=== PATIENT | male | born 1990 | race African-American/Black ===

== ENCOUNTER 2019-01-16 01:59 | Emergency (ER) | payer OTHER ==
[~2019-01-16] VITALS: Ht 185.4 cm; Wt 99.3 kg
[2019-01-16 02:05] VITALS: BP_SYST 147
[2019-01-16] MEDS ORDERED: ACETAMINOPHEN 500 MG TABLET PO ONE (02:45)
[2019-01-16 05:09] VITALS: BP_SYST 147
== END 2019-01-16 05:09 | disposition home or self-care (01) ==
LOC: SED 01:59
DX: R51 Headache (principal); M54.6 Pain in thoracic spine; V43.92XA Unspecified car occupant injured in collision with other type car in traffic accident, initial encounter; Y93.89 Activity, other specified; Y92.410 Unspecified street and highway as the place of occurrence of the external cause; Y99.8 Other external cause status
CPT/HCPCS: 72072-TC; 72100-TC; 72128; 73564; 99284

== ENCOUNTER 2019-09-15 12:05 | Emergency (ER) | payer OTHER ==
[~2019-09-15] VITALS: Ht 185.4 cm; Wt 99.8 kg
[2019-09-15 12:50] VITALS: BP_SYST 155
[2019-09-15] MEDS ORDERED: AZITHROMYCIN 250 MG TABLET PO ONE (13:45)
[2019-09-15] MEDS ORDERED: cefTRIAXone 1 GM VIAL IM ONE (13:45)
--- NOTE | 2019-09-15 15:15 | NUR ---
Patient to ER bed 07 to gown for evaluation. Side rails up.
--- NOTE | 2019-09-15 15:30 | NUR ---
PT CAME TO ER C/O SKIN ABNORMALITY ON LLQ OF ABDOMEN, DOWELL IN COLOR NO PAIN. PT AO4 NO DISTRESS OR DISCOMFORT
--- NOTE | 2019-09-15 15:31 | NUR ---
ARSENIO Cason at bedside examining patient.
[2019-09-15 15:37] VITALS: BP_SYST 125
--- NOTE | 2019-09-15 15:37 | NUR ---
Patient given written and verbal discharge instructions and verbalizes understanding. ER MD discussed with patient the results and treatment provided. Patient in stable condition. ID arm band removed. Rx of Keflex given. Patient educated on pain management and to follow up with PMD. Pain Scale 2/10. Opportunity for questions provided and answered. Medication side effect fact sheet provided.
[2019-09-17 07:07] LABS: CHLAMYDIA TRACHOMATIS NAA Negative (Negative); NEISSERIA GONORRHOEAE NAA Negative (Negative)
== END 2019-09-15 15:37 | disposition home or self-care (01) ==
LOC: SED 12:05
DX: Z11.3 Encounter for screening for infections with a predominantly sexual mode of transmission (principal); R30.0 Dysuria; R21 Rash and other nonspecific skin eruption
CPT/HCPCS: 81002; 87086; 87491; 87591; 96372; 99283; J0696; Q0144